=== PATIENT | male | born 2000 | race Caucasian/White ===

== ENCOUNTER 2020-12-03 18:53 | Inpatient (IN) ==
[2020-12-03] MEDS ORDERED: haloperidoL 5 MG TABLET PO PRN (20:09)
[2020-12-03] MEDS ORDERED: Haloperidol Lactate 5 MG/ML VIAL IM PRN (20:09)
[2020-12-03] MEDS ORDERED: hydrOXYzine pamoate 25 MG CAPSULE PO PRN (20:09)
[2020-12-03] MEDS ORDERED: *HR* LORazepam 2 MG/ML VIAL IM PRN (20:09)
[2020-12-03] MEDS ORDERED: Ibuprofen 400 MG TABLET PO PRN (20:09)
[2020-12-03] MEDS ORDERED: *HR* LORazepam 1 MG TABLET PO PRN (20:09)
[2020-12-03] MEDS: traZODone 50 MG TABLET PO PRN (21:39)
[2020-12-04] MEDS ORDERED: MOM Conc 10 ML UD.LIQ PO PRN (08:19)
[2020-12-04] MEDS ORDERED: Mag Hydrox/Al Hydrox/Simeth 30 ML UDC PO PRN (08:19)
[2020-12-04] MEDS: traZODone 50 MG TABLET PO PRN (21:14)
[2020-12-05 10:35] VITALS: BP 139/90; PULSE 61; TEMP 97.5; O2SAT 100
== END 2020-12-05 13:40 | disposition home or self-care (01) | DRG 751 ==
LOC: EMEROOARM 18:53 → 1ANU 20:29
PROVIDERS: ADMIT Psychiatry & Neurology Psychiatry; ATTEND Psychiatry & Neurology Psychiatry